=== PATIENT | female | born 1955 | race Caucasian/White ===

== ENCOUNTER 2023-08-05 13:17 | Outpatient (CLI) | payer BC, SELFPAY | END 2023-08-05 13:18 | disposition home or self-care (01) | PROVIDERS: PCP Internal Medicine; Visit Provider Internal Medicine | DX: E78.5 Hyperlipidemia, unspecified (principal); R73.03 Prediabetes; Z79.1 Long term (current) use of non-steroidal anti-inflammatories (NSAID) | CPT/HCPCS: 80048; 80061 ==

== ENCOUNTER 2023-09-29 19:29 | Outpatient (CLI) | payer BC, SELFPAY | END 2023-09-29 19:30 | disposition home or self-care (01) | LOC: SLEEP 19:30 | PROVIDERS: PCP Internal Medicine; Visit Provider Internal Medicine | DX: G47.33 Obstructive sleep apnea (adult) (pediatric) (principal); E66.9 Obesity, unspecified | CPT/HCPCS: 95810 ==

== ENCOUNTER 2023-10-13 19:39 | Outpatient (CLI) | payer BC, SELFPAY | END 2023-10-13 19:40 | disposition home or self-care (01) | LOC: SLEEP 19:40 | PROVIDERS: PCP Internal Medicine; Visit Provider Otolaryngology | DX: G47.33 Obstructive sleep apnea (adult) (pediatric) (principal) ==